=== PATIENT | female | born 1970 | race Caucasian/White ===

== ENCOUNTER 2021-10-31 19:51 | Emergency (ER) | payer OTHER, SELFPAY ==
[2021-10-31 20:07] VITALS: BP 187/105; PULSE 87; RESP 16; TEMP 36.4; O2SAT 97; BMI 42.3
--- NOTE | 2021-10-31 20:17 | W.ED.NAVMDI ---
HPI - Nausea/Vomiting/Diarrhea General: Chief complaint: Nausea/Vomiting/Diarrhea Stated complaint: Diarhea with\Blood\Rt Shoulder Blade Cramp Time Seen by Provider: 10/31/21 20:12 History of Present Illness: Ms. Cote is a 51-year-old lady with history of hypertension who presents to the emergency department due to nausea, vomiting, and diarrhea. Symptom onset was subacute approximately 6 days ago. She denies specific known provoking factors and has not had sick contacts. She started with multiple episodes of watery diarrhea mild abdominal cramping. Her symptoms have progressed and on 3 to 4 days ago she also started noticing cramping feeling deep inside behind her right shoulder blade. She denies anterior chest pain or shortness of breath. No cough associated with this. 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 Mild to moderate associated abdominal discomfort. Some nausea and vomiting. Does have decreased urine output. Overall the course of symptoms has been worsening. No other specific changes in health, exacerbating, relieving factors. The patient did not take her antihypertensives this morning due to vomiting. She has a history of hysterectomy remotely with complication requiring prolonged ICU stay. Pertinent past history: abdominal surgery Onset (ago): day(s) Description of vomiting: food contents Description of diarrhea: watery Associated nausea: Yes Associated abdominal pain: Yes Location of pain: Diffuse Pain consistency: intermittent Severity: moderate Quality: cramping Exacerbating factors: none Relieving factors: none Associated symtoms: Reports nausea Review of Systems General: Reports: 10 or more systems reviewed and unremarkable except in HPI and below GI: Reports: nausea PFSH ED PFSH: Medical History HTN (hypertension) Surgical History H/O: hysterectomy Social History Smoking and tobacco status: never smoked Physical Exam Const: COMMON NORMALS: alert GENERAL APPEARANCE: cooperative, well developed and ill appearing (mildly) HENMT: COMMON NORMALS: normocephalic and atraumatic HEAD & SCALP: normocephalic and atraumatic THROAT: posterior oropharynx normal Eye: COMMON NORMALS: conjunctivae normal CONJUNCTIVA: Yes conjunctivae normal SCLERA: sclerae normal Neck/C-Spine: COMMON NORMALS: supple GENERAL: Yes trachea midline Resp: COMMON NORMALS: normal respiratory effort and clear to auscultation bilaterally EFFORT & INSPECTION: Yes able to speak in complete sentences AUSCULTATION: clear to auscultation bilaterally Cardio: COMMON NORMALS: regular rate and regular rhythm RATE: regular rate RHYTHM: regular rhythm GI: COMMON NORMALS: Soft to palpation PALPATION: Yes Soft to palpation and No Tenderness to palpation present (GI) PERCUSSION: normal to percussion Extremity: GENERAL: Yes normal exam except as noted and No edema Neuro: COMMON NORMALS: moves all extremities SENSORIUM/ORIENTATION: Yes alert and No Orientation impaired Psych: COMMON NORMALS: mental status grossly normal and Normal thought process present THOUGHT PROCESS: Normal thought process present Course ED course: - Patient was seen and evaluated by me at bedside - Patient placed on cardiac monitors, IV access obtained - Initial evaluation notable for exam as above -Fluids, antiemetic ordered - Labs notable for leukocytosis, likely hemoconcentration. Metabolic panel with mild evidence of dehydration. Unclear etiology of mild transaminitis. Urinalysis without evidence of urinary tract infection. - Imaging notable for negative chest x-ray. No acute finding noted on CT abdomen and pelvis to explain the patient's symptoms. Based on physical exam including nonfocal findings I do not feel that any additional inpatient or emergency department evaluation of transaminitis is warranted. The patient's clinical history is inconsistent with biliary pathology. - Upon serial reexamination after treatment the patient was improved. She did require multiple doses of antihypertensive. Hypertension was discussed with the patient - Based on patient history, evaluation, labs, and imaging as interpreted the most likely cause of the patient's condition is nausea, vomiting, diarrhea of unclear etiology, transaminitis, hypertension - The results of ED evaluation were discussed with the patient including prescriptions and/or symptomatic cares (if applicable) including appropriate and responsible use, followup plan, and return precautions. The patient verbalized understanding and felt safe for discharge. - Patient discharged in satisfactory condition. Note: Click bubbles or prepopulated marquez in note writing are used for assistance with data collection and billing and are inherently more limited than narrative and other text portions of this note. Please use narrative for additional clinical history and defer to narrative/free test for any case of contradictory information. If information appears in only free text or click bubble it should be considered present or absent as reported. Please contact note technical report writer for clarifications of clinical information or contradictory information. MDM is a brief summary, contradictory or erroneous seeming information should be clarified and full note should be reviewed. Vital Signs: Vital signs: Vital Signs Temperature 97.5 F L 10/31/21 20:07 Pulse Rate 74 10/31/21 23:26 Respiratory Rate 18 10/31/21 23:26 Blood Pressure 201/101 10/31/21 23:26 Pulse Oximetry 99 10/31/21 23:26 MDM - Nausea/Vomiting/Diarrhea Medical Decision Making 51-year-old lady with history of abdominal surgeries presenting with nausea, vomiting, diarrhea. No specific cause found during evaluation in the emergency department. Patient felt improved after symptom treatment. Given blood in diarrhea we will give a short course of antibiotic. Satisfactory for outpatient management. Medical Records I reviewed the patient's medical records. Lab Data I reviewed the patient's lab results. : 10/31/21 20:47 10/31/21 20:47 Radiology Impressions Abdomen/Pelvis CT 10/31/21 20:49 IMPRESSION: No acute findings. Chest X-Ray 10/31/21 20:49 IMPRESSION: No acute findings. Laboratory Results WBC 14.2 10^3/uL (4.0-10.0) H 10/31/21 20:47 RBC 5.57 10^6/uL (4.1-5.3) H 10/31/21 20:47 Hgb 15.6 g/dL (11.5-15.3) H 10/31/21 20:47 Hct 48.0 % (37.0-47.0) H 10/31/21 20:47 MCV 86.2 fl (81-99) 10/31/21 20:47 MCH 28.0 pg (28.0-34.0) 10/31/21 20:47 MCHC 32.5 g/dL (30.0-36.0) 10/31/21 20:47 RDW 13.4 % (12.1-15.1) 10/31/21 20:47 Plt Count 348 10^3/cmm (130-400) 10/31/21 20:47 MPV 10.2 fL (7.4-10.4) 10/31/21 20:47 Neut % (Auto) 65.2 % 10/31/21 20:47 Lymph % (Auto) 24.9 % 10/31/21 20:47 [place] % (Auto) 7.6 % 10/31/21 20:47 Eos % (Auto) 1.3 % 10/31/21 20:47 Baso % (Auto) 0.6 % 10/31/21 20:47 Neut # (Auto) 9.30 10^3/uL (1.8-7.7) H 10/31/21 20:47 Lymph # (Auto) 3.5 10^3/uL (0.8-4.8) 10/31/21 20:47 [place] # (Auto) 1.1 10^3/uL (0.2-0.9) H 10/31/21 20:47 Eos # (Auto) 0.2 10^3/uL (0.0-0.8) 10/31/21 20:47 Baso # (Auto) 0.1 10^3/uL (0.0-0.1) 10/31/21 20:47 Nucleated RBC % (auto) 0 % 10/31/21 20:47 Nucleated RBCs # 0.0 /100WBC 10/31/21 20:47 Sodium 134 mmol/L (136-145) L 10/31/21 20:47 Potassium 3.9 mmol/L (3.5-5.1) 10/31/21 20:47 Chloride 100 mmol/L (98-107) 10/31/21 20:47 Carbon Dioxide 21 mmol/L (22-29) L 10/31/21 20:47 Anion Gap 16.9 (5-19) 10/31/21 20:47 BUN 13 mg/dL (6-20) 10/31/21 20:47 Creatinine 0.5 mg/dL (0.5-0.9) 10/31/21 20:47 GFR Calculation 130.1 mL/min (90-130) H 10/31/21 20:47 Glucose 92 mg/dL (65-115) 10/31/21 20:47 Calculated Osmolality 278 mOsm/kg (285-295) L 10/31/21 20:47 Calcium 10.2 mg/dL (8.5-10.5) 10/31/21 20:47 Total Bilirubin 0.5 mg/dL (0.15-1.2) 10/31/21 20:47 AST 34 U/L (0-32) H 10/31/21 20:47 ALT 60 U/L (0-33) H 10/31/21 20:47 Alkaline Phosphatase 125 IU/L (35-105) H 10/31/21 20:47 Troponin T Baseline 11 ng/L (0-10) H 10/31/21 20:47 Troponin T 120 Minute 6.90 ng/L (0-10) 10/31/21 22:41 Delta Troponin T -4.10 ABS# (0-10) L 10/31/21 22:41 Total Protein 7.2 g/dL (6.6-8.7) 10/31/21 20:47 Albumin 4.9 g/dL (3.5-5.2) 10/31/21 20:47 Globulin 2.3 g/dL (1.3-4.6) 10/31/21 20:47 Lipase 19 U/L (13-60) 10/31/21 20:47 Urine Color Yellow (Yellow) 10/31/21 20:47 Urine Appearance Sl hazy (CLEAR) 10/31/21 20:47 Urine pH 5 (5-7) 10/31/21 20:47 Ur Specific [place] 1.030 (1.005-1.030) 10/31/21 20:47 Urine Protein Neg (Negative) 10/31/21 20:47 Urine Glucose (UA) Norm (Normal) 10/31/21 20:47 Urine Ketones Negative (Negative) 10/31/21 20:47 Urine Blood Neg (Negative) 10/31/21 20:47 Urine Nitrate Negative (Negative) 10/31/21 20:47 Urine Bilirubin Neg (Negative) 10/31/21 20:47 Urine Urobilinogen Norm mg/dL (Negative) 10/31/21 20:47 Ur Leukocyte Esterase Negative (Negative) 10/31/21 20:47 Urine RBC 0-4 /hpf (0-2) H 10/31/21 20:47 Urine WBC 0-4 /hpf (0-5) H 10/31/21 20:47 Ur Squamous Epith Cells 25-40 /hpf (0-5) H 10/31/21 20:47 Amorphous Sediment Not Reportable 10/31/21 20:47 Urine Bacteria 1+ /hpf (NONE) H 10/31/21 20:47 Hepatitis A IgM Ab Non-reactive (Nonreactive) 10/31/21 20:47 Hep Bs Antigen Non-reactive (Nonreactive) 10/31/21 20:47 Hep B Core IgM Ab Non-reactive (Nonreactive) 10/31/21 20:47 Hepatitis C Antibody Non-reactive (Nonreactive) 10/31/21 20:47 SARS-CoV-2 RNA (RT-PCR) Not detected (NOT DETECTED) 10/31/21 22:31 EKG Data EKG 1: Interpretation: Twelve-lead EKG shows a sinus rhythm at a rate of 70. NH interval 149. QRS duration 88. QTc 426. Regular [place]. Interpretation: Sinus rhythm. Nonspecific ST segment abnormalities. Discharge Plan Discharge Patient Disposition: Home Clinical Impression: Nausea & vomiting, HTN (hypertension), Dehydration, Diarrhea, Shoulder pain, Leukocytosis, Transaminitis Condition: Stable Prescriptions: New azithromycin 500 mg tablet See Rx Instructions .ROUTE .COMPLEX Qty: 3 0RF Rx Instructions: take 500 mg once daily for 3 days Discharge Orders: Discharge ED (Routine); Ordered 10/31/21 Ordered By: Oleksandr Osborn Discharge Diet: Clear Liquid Discharge Activity: Resume usual activity Patient Instructions: Dehydration (ED), Acute Nausea and Vomiting (ED), Acute Diarrhea (ED) Activity Restrictions/Additional Instructions: Thank you for visiting the emergency department. You were seen and evaluated for nausea, vomiting, and diarrhea with blood in stool. The exact cause of your symptoms is unclear. Given the duration and blood in stool I will treat this. You will be given a prescription for antibiotics and for antinausea medication. As discussed your blood pressure is elevated, please follow-up with your primary care provider regarding this. Additionally you have mild elevation in your transaminases (AST/ALT), please have labs rechecked in 1 to 2 weeks and follow-up with your primary care provider as they may recommend additional imaging with ultrasound. Return to the emergency department for uncontrolled pain, vomiting blood or more blood in stool despite treatment, inability to tolerate oral intake, or anything else that you are concerned about a feel needs emergency department evaluation. Coding Level of Care Code ED Magazine Publisher for Graceg Fwd Exam Comprehensive
--- NOTE | 2021-10-31 20:49 | CTR_ITS ---
PROCEDURE INFORMATION: Exam: CT Abdomen And Pelvis With Contrast Exam date and time: 10/31/2021 8:49 PM Age: 51 years old Clinical indication: Bloating and nausea and vomiting; Prior surgery; Surgery type: Hysterectomy; Patient HX: C/O adb cramping with n/v/d. ; Additional info: N/v/d, cramping TECHNIQUE: Imaging protocol: Computed tomography of the abdomen and pelvis with contrast. Radiation optimization: All CT scans at this facility use at least one of these dose optimization techniques: automated exposure control; mA and/or kV adjustment per patient size (includes targeted exams where dose is matched to clinical indication); or iterative reconstruction. Contrast material: OMNI 300; Contrast volume: 95 ml; Contrast route: INTRAVENOUS (IV); COMPARISON: No relevant prior studies available. RADIATION DOSE METRICS: Total DLP (mGy-cm): 1963.69 FINDINGS: Liver: Normal. No mass. Gallbladder and bile ducts: Normal. No calcified stones. No ductal dilation. Pancreas: Normal. No ductal dilation. Spleen: Normal. No splenomegaly. Adrenal glands: Normal. No mass. Kidneys and ureters: Normal. No hydronephrosis. Stomach and bowel: Colonic and duodenal diverticuli noted. No evident pericolic inflammatory change. No findings of abnormal bowel distention. Appendix: No evidence of appendicitis. Intraperitoneal space: Unremarkable. No free air. No significant fluid collection. Vasculature: Unremarkable. No abdominal aortic aneurysm. Lymph nodes: Unremarkable. No enlarged lymph nodes. Urinary bladder: Unremarkable as visualized. Reproductive: Hysterectomy. Bones/joints: No acute fracture. Soft tissues: Unremarkable. CT/CT abdomen pelvis w con* [id number] IMPRESSION: No acute findings.
--- NOTE | 2021-10-31 20:49 | XRR_ITS ---
PROCEDURE INFORMATION: Exam: XR Chest Exam date and time: 10/31/2021 8:49 PM Age: 51 years old Clinical indication: Chest wall pain; Additional info: Shoulder/chest pain TECHNIQUE: Imaging protocol: XR of the chest. Views: 1 view. COMPARISON: CT abdomen pelvis w con* [id number] 10/31/2021 9:09 PM FINDINGS: Lungs: Unremarkable. No consolidation. Pleural spaces: Unremarkable. No pleural effusion. No pneumothorax. Heart/Mediastinum: Unremarkable. No cardiomegaly. Bones/joints: No acute findings. XR/XR chest 1V portable [id number] IMPRESSION: No acute findings.
[2021-10-31 21:01] LABS: Basophils # 0.1 10^3/uL (0.0-0.1); Basophils % 0.6 %; Eosinophils # 0.2 10^3/uL (0.0-0.8); Eosinophils % 1.3 %; Hemoglobin 15.6 g/dL (11.5-15.3); Lymphocytes # 3.5 10^3/uL (0.8-4.8); Lymphocytes % 24.9 %; Mean Corpuscular HGB Conc 32.5 g/dL (30.0-36.0); Mean Corpuscular Volume 86.2 fl (81-99); Mean Platelet Volume 10.2 fL (7.4-10.4); Monocytes # 1.1 10^3/uL (0.2-0.9); Monocytes % 7.6 %; Neutrophils % 65.2 %; Nucleated Red Blood Cells % 0 %; Platelet Count 348 10^3/cmm (130-400); Red Blood Count 5.57 10^6/uL (4.1-5.3); Red Cell Distribution Width 13.4 % (12.1-15.1); White Blood Count 14.2 10^3/uL (4.0-10.0)
[2021-10-31] MEDS: iohexol 300 mg/mL 100 mL Btl IV (21:09)
[2021-10-31 21:19] LABS: Add Urine Culture? No; Add Urine Microscopic? YES; Bacteria Urine 1+ /hpf; Bilirubin Urine Neg (Negative); Blood Urine Neg (Negative); Glucose Urine UA Norm (Normal); Ketones Urine Negative (Negative); Leukocyte Esterase Urine Negative (Negative); Nitrate Urine Negative (Negative); Protein Urine Neg (Negative); RBC Urine 0-4 /hpf (0-2); Squamous Epithelial Cell Urine 25-40 /hpf (0-5); Urine Appearance SL Hazy (CLEAR); Urine Color Yellow (Yellow); Urobilinogen Urine Norm (Negative); WBC Urine 0-4 /hpf (0-5); pH Urine 5 (5-7)
[2021-10-31 21:23] LABS: Alanine Aminotransferase 60 U/L (0-33); Albumin Level 4.9 g/dL (3.5-5.2); Alkaline Phosphatase 125 IU/L (35-105); Anion Gap 16.9 (5-19); Aspartate Amino Transferase 34 U/L (0-32); Blood Urea Nitrogen 13 mg/dL (6-20); Calcium 10.2 mg/dL (8.5-10.5); Carbon Dioxide 21 mmol/L (22-29); Chloride 100 mmol/L (98-107); Globulin 2.3 g/dL (1.3-4.6); Glomerular Filtration Rate 130.1 mL/min (90-130); Glucose 92 mg/dL (65-115); Lipase 19 U/L (13-60); Osmolality Calculated 278 mOsm/kg (285-295); Potassium 3.9 mmol/L (3.5-5.1); Sodium 134 mmol/L (136-145); Total Bilirubin 0.5 mg/dL (0.15-1.2); Total Protein 7.2 g/dL (6.6-8.7)
[2021-10-31 21:24] LABS: Troponin(5th) Baseline 11 ng/L (0-10)
[2021-10-31] MEDS: ondansetron 2 mg/ML SDV 2 mL 4 MG IVP (21:25)
[2021-10-31] MEDS: sodium chloride 0.9% 1,000 ML 999 ML IV (21:25)
[2021-10-31 21:47] VITALS: BP 182/102
[2021-10-31] MEDS: cloNIDine 0.1 mg Tablet PO ×2 (21:47→23:02)
[2021-10-31 21:48] VITALS: BP 182/102; PULSE 76; RESP 20; O2SAT 100
[2021-10-31 22:27] VITALS: BP 185/93; PULSE 74; RESP 18; O2SAT 100
--- NOTE | 2021-10-31 22:49 | ECG_ITS ---
[facility] Test Date: 2021-10-31 Pat Name: Ruby Cote Department: Room: Gender: Female [place]oughen[place]: : 1970 Requested By: Oleksandr Osborn Order Number: [id number] Joshua MD: Hong Walker M.D. Measurements Intervals [place] Rate: 74 P: 36 HI: 149 QRS: 59 QRSD: 88 T: 29 QT: 398 QTc: 444 Interpretive Statements SINUS RHYTHM No previous ECG available for comparison Electronically Signed On 11-01-2021 17:42:36 LYFT DRIVER by Hong Walker M.D. [email or web address]
[2021-10-31 22:57] LABS: Hepatitis A Antibody IgM Non-Reactive (Nonreactive); Hepatitis B Core IgM Non-Reactive (Nonreactive); Hepatitis B Surface Antigen Non-Reactive (Nonreactive); Hepatitis C Virus Antibody Non-Reactive (Nonreactive)
[2021-10-31 23:02] VITALS: BP 185/93
[2021-10-31 23:26] VITALS: BP 201/101; PULSE 74; RESP 18; O2SAT 99
[2021-11-02 11:06] LABS: Quest SARS-CoV-2 RNA NOT DETECTED (NOT DETECTED)
--- NOTE | 2021-11-02 17:17 | PC.NURSE ---
Left voice mail
== END 2021-10-31 23:27 | disposition home or self-care (01) ==
PROVIDERS: Emergency Provider Emergency Medicine
DX: R11.2 Nausea with vomiting, unspecified (principal); R19.7 Diarrhea, unspecified; I10 Essential (primary) hypertension; E86.0 Dehydration; D72.829 Elevated white blood cell count, unspecified; R74.01 Elevation of levels of liver transaminase levels; M25.511 Pain in right shoulder; Z20.822 Contact with and (suspected) exposure to COVID-19
CPT/HCPCS: 36415; 71045; 74177; 80053; 80074; 81001; 83690; 84484; 85025; 87635; 93005; 96361; 96374; 99284; J2405; J7030; Q9967

== ENCOUNTER 2021-12-01 08:34 | Emergency (ER) | payer OTHER, SELFPAY ==
--- NOTE | 2021-12-01 08:38 | XRR_ITS ---
PROCEDURE INFORMATION: Exam: XR Right Foot Exam date and time: 12/01/2021 8:38 AM Age: 51 years old Clinical indication: Pain; Additional info: Injury TECHNIQUE: Imaging protocol: XR Right foot. Views: Frontal, lateral, and oblique, 3 views. COMPARISON: No relevant prior studies available. FINDINGS: Bones/joints: No acute bony abnormality identified. Mild dorsal articular marginal hypertrophy of the midfoot-forefoot junction. A small plantar calcaneal ossified spur is present. Fifth DIP joint fusion, normal variant. Soft tissues: Normal. XR/XR foot RT min 3V* [id number] IMPRESSION: 1. No acute bony injury identified. 2. Primary osteoarthritis. 3. Plantar calcaneal spur.
[2021-12-01 09:02] VITALS: BP 176/104; PULSE 85; RESP 18; TEMP 36.8; O2SAT 96; BMI 43.5
--- NOTE | 2021-12-01 09:15 | ED_ITS ---
HPI - Extremity Problem General: Chief complaint: Extremity Injury, Lower Stated complaint: R foot injury Time Seen by Provider: 12/01/21 09:00 Source: patient Mode of arrival: ambulatory Limitations: no limitations History of Present Illness: 51-year-old female presents to the ER today for right foot numbness and pain times several days. Patient reports about 25 years ago she injured this foot but denies having had any issues with it since. Patient reports this numbness on the dorsum of her right foot in addition to that she has numbness from the right big toe up into the mid calf. Patient also describes a heaviness in the foot. She reports pain to palpation and with ambulation just inferior to the right lateral malleolus. Patient denies any known injury in the last several days other than she reports she is on her feet frequently. She has not done anything for the pain at this time other than [id number] ibuprofen or Tylenol. Patient reports minimal swelling. Review of Systems General: Reports: 10 or more systems reviewed and unremarkable except in HPI and below PFSH ED PFSH: Medical History HTN (hypertension) Surgical History H/O: hysterectomy Social History Smoking and tobacco status: never smoked Physical Exam Const: COMMON NORMALS: no acute distress, average body habitus, patient oriented x3, no limitations, healthy appearing, alert and well nourished Resp: COMMON NORMALS: normal respiratory effort and clear to auscultation bilaterally EFFORT & INSPECTION: Yes able to speak in complete sentences AUSCULTATION: clear to auscultation bilaterally Cardio: COMMON NORMALS: regular rate and regular rhythm RATE: regular rate RHYTHM: regular rhythm Extremity: RIGHT LOWER EXTREMITY: Yes foot & digits (Patient has some mild swelling of the right lateral malleolus) OTHER: Patient has tenderness to palpation over the proximal fourth and fifth metatarsals. There is mild swelling over this area also. No bruising noted. Neuro: COMMON NORMALS: patient oriented x3 SENSORIUM/ORIENTATION: Yes alert Psych: COMMON NORMALS: mental status grossly normal, Normal thought process present and cooperative THOUGHT PROCESS: Normal thought process present Skin: COMMON NORMALS: no rashes or lesions noted GENERAL SKIN EXAM: no rashes or lesions noted Course ED course: Patient presents to the ER for right foot pain. This has been going on several days now. There is no known injury other than a chronic injury 25 years ago. We will get x-ray at this time given swelling and increased pain. Vital Signs: Vital signs: Vital Signs Temperature 98.2 F 12/01/21 09:02 Pulse Rate 85 12/01/21 09:02 Respiratory Rate 18 12/01/21 09:02 Blood Pressure 176/104 12/01/21 09:02 Pulse Oximetry 96 12/01/21 09:02 MDM - Extremity (Nontraumatic) Medical Decision Making 51-year-old female presents to the ER today for right foot pain for several days. Patient reports she injured this ankle and foot about 25 years ago but has not had problems since. Patient reports she got out and works in the yard this weekend and has noted increased pain and numbness over the lateral aspect of the dorsal part of the right foot. Patient reports some swelling. She has tried icy hot and anti-inflammatories with minimal improvement. X-ray performed in the ER does not indicate any acute injury however there is noted to be some arthritis which is likely the cause of patient's pain and numbness. Recommend rest, ice, elevation. Take ibuprofen or Aleve x1 week for inflammation. Follow-up with PCP in 14 to 21 days if no improvement. Return to the ER with new or worsening symptoms. Patient verbalized understanding and is in agreement with the treatment plan. Lab Data Radiology Impressions Foot X-Ray 12/01/21 08:38 IMPRESSION: 1. No acute bony injury identified. 2. Primary osteoarthritis. 3. Plantar calcaneal spur. Critical Care Time Critical Care Time: Critical Care Time: No Discharge Plan Discharge Patient Disposition: Home Clinical Impression: Acute pain of right foot Condition: Stable Prescriptions: No Action azithromycin 500 mg tablet See Rx Instructions .ROUTE .COMPLEX Qty: 3 0RF Rx Instructions: take 500 mg once daily for 3 days Discharge Orders: Discharge ED (Routine); Ordered 12/01/21 Ordered By: Veronica Dorsey Discharge Diet: Usual diet Discharge Activity: Increase activity as tolerated Patient Instructions: Opioid Safety Activity Restrictions/Additional Instructions: Take Aleve or naproxen as discussed. Rest, ice, and elevation recommended. Follow-up with primary care in 14 to 21 days if no improvement. Return to the ER with new or worsening symptoms. Coding Level of Care Code ED Refrigerator Glazier for Chg Fwd Exam Detailed
== END 2021-12-01 10:09 | disposition home or self-care (01) ==
PROVIDERS: Emergency Provider Physician Assistant
DX: M79.671 Pain in right foot (principal); I10 Essential (primary) hypertension
CPT/HCPCS: 73630; 99282

== ENCOUNTER 2022-02-12 15:11 | Outpatient (CLI) | payer OTHER, SELFPAY ==
--- NOTE | 2022-02-12 15:39 | CT_ITS ---
WS: [id number] CT NECK TECHNIQUE: Noncontrast CT of the neck with coronal and sagittal reformatted images. CLINICAL INFORMATION: NECK NODULE, HYPOTHYROIDISM COMPARISON: None. DLP: 318.[address] scans at [facility] use at least one of these dose optimization techniques: automated e xposure control; mA and/or kV adjustment per patient size (includes targeted exams where dose is matc hed to clinical indication); or iterative reconstruction. FINDINGS: Palpable marker overlying the LEFT lower neck. Lung apices are well aerated. Tiny calcified granuloma RIGHT upper lobe. Mastoid air cells well aerated. Paranasal sinuses are well aerated. Normal submand ibular glands. Normal parotid glands. Dental artifact degrades some images at the tongue base. Noncon trast tongue base appears normal. Normal parapharyngeal fat. Normal palatine tonsils. No evidence of supraglottic or glottic mass. Normal vallecula and piriform sinuses. Normal subglottic airway. Palpable marker overlying the LEFT neck at the level of the sternocleidomastoid. No underlying abnorm alities. Normal underlying platysma and subcutaneous soft tissues. Slightly prominent lymph node post erior to the submandibular gland anterior to the sternocleidomastoid on the LEFT measuring 10 mm in s hort axis dimension. This measures [address]/CT neck wo con [id number] IMPRESSION: 1. Palpable marker in the LEFT lower neck at the level of the sternocleidomast oid. No underlying subcutaneous mass or lesion in this location. 2. Slightly prominent LEFT level 2 cervical lymph node measuring 10 mm in shor t axis dimension and 16 mm in craniocaudal dimension. This may be reactive but indeterminant. This can be followed up with contrast-enhanced CT neck in 3 daly hs. Otherwise no cervical lymphadenopathy. 3. Normal salivary glands. 4. No evidence of supraglottic or glottic mass on this noncontrast CT. 5. Paranasal sinuses and mastoid air cells well aerated. 6. No other significant findings.
== END 2022-02-12 15:12 | disposition home or self-care (01) ==
PROVIDERS: PCP Nurse Practitioner Family; Visit Provider Nurse Practitioner Family
DX: E03.9 Hypothyroidism, unspecified (principal); R22.1 Localized swelling, mass and lump, neck; R60.9 Edema, unspecified; F41.9 Anxiety disorder, unspecified
CPT/HCPCS: 70490

== ENCOUNTER 2022-06-17 16:34 | Outpatient (CLI) | payer OTHER, SELFPAY ==
--- NOTE | 2022-06-17 17:03 | CT_ITS ---
WS: [id number] CT NECK NONCONTRAST. HISTORY: HYPOTHYROIDISM, NECK NODULE TECHNIQUE: Contiguous 5 mm axial images are performed through the neck without intravenous contrast. Sagittal and coronal reformats are also submitted. All CT scans at [facility] use at least on e of these dose optimization techniques: automated exposure control; mA and/or kV adjustment per shiv ent size (includes targeted exams where dose is matched to clinical indication); or iterative reconst ruction. CONTRAST: CONTRAST: None DLP: 300.94 mGy.cm COMPARISON: 02/12/2022 Very minimally prominent on the LEFT cervical chain level 2A. The largest lymph node measures 10 mm i n short axis diameter. There is no necrosis or enlargement since the prior study. There are several b ut not enlarged lymph nodes along the LEFT cervical chain. Smaller lymph nodes along the RIGHT cervic al chain. No increase in size since the prior study. On the unenhanced study subtle oropharyngeal lesions would be difficult to visualize. There is no asy mmetry of the soft tissues. No obstruction or narrowing of the airway. Glottis, supraglottic and subg lottic region appears normal. Tongue base is negative. Thyroid gland is very difficult to visualize and may be atrophied. Submandibular glands and parotid g lands negative. No osseous abnormalities. Visualized portions of the skull base demonstrate no abnormalities. Orbits and globes are within norm al limits. No soft tissue masses. Visualized paranasal sinuses and mastoid air cells are normal. Lung apices are clear. CT/CT neck wo con [id number] IMPRESSION: 1. LEFT neck lymph node is no longer palpable. 2. No significant decrease in size of the LEFT level 2A lymph node since 2021. Also no enlargement. This is not a necrotic lymph node. Favor this is a n ormal lymph node with no interval change. 3. Additional small benign bilateral cervical chain lymph nodes. 4. No glottic, subglottic or supraglottic abnormality on this unenhanced study .
== END 2022-06-17 16:35 | disposition home or self-care (01) ==
PROVIDERS: PCP Nurse Practitioner Family; Visit Provider Family Medicine
DX: E03.9 Hypothyroidism, unspecified (principal); F41.9 Anxiety disorder, unspecified; R60.9 Edema, unspecified
CPT/HCPCS: 70490

== ENCOUNTER 2022-07-15 15:18 | Emergency (ER) | payer OTHER, SELFPAY ==
[2022-07-15 15:30] VITALS: BP 169/108; PULSE 93; RESP 18; TEMP 36.4; O2SAT 96; BMI 44.6
--- NOTE | 2022-07-15 16:31 | W.ED.ALLEREA ---
HPI - Allergic Reaction General: Chief complaint: Allergic Reaction Stated complaint: rash Time Seen by Provider: 07/15/22 16:26 History of Present Illness: HPI narrative: Patient is a 52-year-old female comes to the ED with a rash. Patient says rash started approximately 1 to 2 hours ago. She has been very anxious today and had to take a dose of her Ativan this morning. Her and her were coming here to [place] do some shopping and she started developing a rash that she described as a burning type rash on her abdomen and arms. Denies any trouble breathing, throat swelling, lip or tongue swelling, nausea/vomiting or diarrhea. Patient did say she been under a lot of stress recently due to other health concerns. Denies any change in lotions, soaps, detergents or perfumes. Denies any history of food or other allergies. Associated symptoms: Deny abdominal pain, nausea or vomiting Review of Systems Const: Denies: fever(s), chills or fatigue Eyes: Denies: change in vision or eye discomfort ENMT: Denies: throat pain, odynophagia, nasal discharge or nasal congestion Card: Denies: chest pain, palpitations, edema, swelling of feet/ankles, dyspnea on exertion or orthopnea Resp: Denies: dyspnea, productive cough or non-productive cough GI: Denies: abdominal pain, nausea, vomiting, diarrhea, constipation or hematochezia : Denies: flank pain, dysuria or hematuria Musc: Denies: neck pain, back pain or extremity swelling Skin/Breast: Reports: rash; Denies: new lesions Neuro: Denies: headache(s), numbness in extremities or weakness in extremities [facility] ED PFSH: Medical History HTN (hypertension) Surgical History H/O: hysterectomy Social History Smoking and tobacco status: never smoked Physical Exam Const: COMMON NORMALS: no acute distress, patient oriented x3 and alert GENERAL APPEARANCE: cooperative and comfortable HENMT: COMMON NORMALS: normocephalic HEAD & SCALP: normocephalic MOUTH: Normal oral and palatal mucosa present THROAT: posterior oropharynx normal and uvula midline Neck/C-Spine: COMMON NORMALS: supple GENERAL: Yes normal visual inspection Resp: COMMON NORMALS: normal respiratory effort, No retractions, No use of accessory muscles and clear to auscultation bilaterally AUSCULTATION: clear to auscultation bilaterally Cardio: COMMON NORMALS: regular rate, regular rhythm, S1 normal heart sound present, S2 normal heart sound present, No gallops present (Cardio), No clicks present (Cardio), No murmurs present (Cardio) and Peripheral pulses 2+ throughout RATE: regular rate RHYTHM: regular rhythm HEART SOUNDS: S1 normal heart sound present and S2 normal heart sound present PERIPHERAL PULSES: Peripheral pulses 2+ throughout GI: COMMON NORMALS: Normal to inspection, nondistended, normoactive bowel sounds present, Soft to palpation, non-tender and no masses PALPATION: Yes Soft to palpation : COMMON NORMALS: Yes no CVA tenderness BLADDER/KIDNEY EXAM: Yes no CVA tenderness Back/Pelvis: COMMON NORMALS: no CVA tenderness Extremity: COMMON NORMALS: normal to inspection Neuro: COMMON NORMALS: patient oriented x3 SENSORIUM/ORIENTATION: Yes alert GAIT: Yes Normal gait present Skin: NARRATIVE SKIN EXAM: Patient has urticarial type rash on bilateral arms, chest and abdomen. GENERAL SKIN EXAM: dry skin Course Vital Signs: Vital signs: Vital Signs Temperature 97.6 F 07/15/22 15:30 Pulse Rate 93 07/15/22 15:30 Respiratory Rate 18 07/15/22 15:30 Blood Pressure 169/108 07/15/22 15:30 Pulse Oximetry 96 07/15/22 15:30 Oxygen Delivery Me thod 07/15/22 15:30 MDM - Allergic Reaction Medical Decision Making Patient is a 52-year-old female comes to the ED with a rash. Patient says rash started approximately 1 to 2 hours ago. She has been very anxious today and had to take a dose of her Ativan this morning. Her and her were coming here to [place] do some shopping and she started developing a rash that she described as a burning type rash on her abdomen and arms. Denies any trouble breathing, throat swelling, lip or tongue swelling, nausea/vomiting or diarrhea. She is under a lot of stress currently denies any history of allergic reactions. Denies any changes in skin care/cleaning products. Vitals are stable. Patient appears to have an urticarial type rash on her abdomen and arms bilaterally. No lip or tongue swelling noted. Rest of exam is benign. Patient was given a dose of Solu-Medrol and Benadryl here in the ED. Her rash improved and she was stable for discharge home. She was diagnosed with urticaria and discharged home with this prescription for a couple days of prednisone. Told to follow-up with PCP within the next week for reevaluation. Return to ED precautions given. Patient understood and agreed with plan. Discharge Plan Discharge Patient Disposition: Home Clinical Impression: Urticaria Condition: Stable Prescriptions: New prednisone 20 mg tablet 20 mg PO BID 3 Days Qty: 6 0RF No Action azithromycin 500 mg tablet See Rx Instructions .ROUTE .COMPLEX Qty: 3 0RF Rx Instructions: take 500 mg once daily for 3 days Discharge Orders: Discharge ED (Routine); Ordered 07/15/22 Ordered By: Guicho Franks Referrals: Lori Johnson FNP [Primary Care Provider] - Discharge Diet: Regular Discharge Activity: Increase activity as tolerated Patient Instructions: Urticaria (ED) Activity Restrictions/Additional Instructions: Follow-up with medical provider as directed. Take medications as prescribed. Return to the ER or your medical provider if condition worsens. Please read and understand discharge instructions. Thank you for choosing [facility] for your healthcare needs today. Please realize this is an emergency room and that we are providing you with a medical screening exam and this may not be complete and all inclusive of all the testing and or work up that you may need to determine your ailment or severity of your illness. It is very important that you follow up as instructed or that you return to the Emergency Department should you have concerns or if your condition changes or worsens in any way. Coding Level of Care Code ED Confidential Investigator for Varun Hood Exam Comprehensive
[2022-07-15] MEDS: diphenhydrAMINE 50 mg Capsule PO (17:12)
== END 2022-07-15 17:43 | disposition home or self-care (01) ==
PROVIDERS: Emergency Provider Physician Assistant; PCP Nurse Practitioner Family
DX: L50.9 Urticaria, unspecified (principal); I10 Essential (primary) hypertension
CPT/HCPCS: 96372; 99284; J2930; Q0163

== ENCOUNTER 2022-07-28 08:03 | Day surgery (SDC) | payer OTHER, SELFPAY ==
[2022-07-25 07:42] VITALS: BMI 44.4
--- NOTE | 2022-07-28 07:58 | W.PM.OPSFHP ---
Same Day Surgery H&P Indication for Procedure/HPI DATE OF PROCEDURE: July 28, 2022 CHIEF COMPLAINT/INDICATIONFOR SURGICAL PROCEDURE: Dysphagia and family history of colon cancer PREOP DIAGNOSIS: Dysphagia family history dysphagia and a family history of colon cancer PLANNED PROCEDURE: Operation Date: 07/28/22 09:30 Proposed Procedures p EGD Dilation W/ Bougie 29786/Colonoscopy 76732,Z80.0(Not Applicable) - Jose Loyd MD s Colonoscopy(Not Applicable) - Jose Loyd MD Medications/Allergies* Home Medications Medication Instructions Recorded Confirmed Type levothyroxine 175 mcg tablet 175 mcg PO DAILY 07/23/22 07/25/22 History losartan 50 mg-hydrochlorothiazide 1 tab PO DAILY 07/23/22 07/25/22 History 12.5 mg tablet tirzepatide 2.5 mg/0.5 mL 2.5 mg SUBCUT DIRECTED 07/23/22 07/25/22 History subcutaneous pen injector (Mounjaro) omeprazole 20 mg tablet,delayed 20 mg PO DAILY PRN Heartburn 07/25/22 07/25/22 History release Allergies/Adverse Reactions Allergy/AdvReac Type Severity Reaction Status Date / Time No Known Allergies Allergy Verified 07/25/22 07:30 Pertinent History/Comorbid Conditions* Medical History (Updated 07/23/22 @ 11:16 by Jose Loyd MD) HTN (hypertension) Surgical History (Updated 10/31/21 @ 20:38 by Oleksandr Osborn MD) H/O: hysterectomy Social History Smoking and tobacco status: never smoked Pertinent Exam Findings alert, oriented x 3, clear to auscultation bilaterally, regular rate & rhythm, operative site marked and procedure specific exam findings Recommendations Surgery/Procedure today Coding Level of Care Code Acute Transportation Engineer for Varun Hood
[2022-07-28 08:20] VITALS: BP 162/133; PULSE 101; RESP 18; TEMP 36.1; O2SAT 97
[2022-07-28] MEDS: sodium chloride 0.9% 1,000 ML 30 ML IV (08:33)
--- NOTE | 2022-07-28 08:36 | ANES.PREANE2 ---
Pre-Anesthetic Assessment Height/Weight: Height 1.7 m Weight 128.82 kg Temp Pulse Resp BP Pulse Ox O2 Del Method 97 F L 101 H 18 162/133 97 07/28/22 08:20 07/28/22 08:20 07/28/22 08:20 07/28/22 08:20 07/28/22 08:20 07/28/22 08:20 Preop Diagnosis: FH and dysphagia Operation Date: 07/28/22 09:30 Proposed Procedures p EGD Dilation W/ Bougie 23835/Colonoscopy 11586,Z80.0(Not Applicable) - Jose Loyd MD s Colonoscopy(Not Applicable) - Jose Loyd MD Familial anesthetic complications: none Was Beta Noa taken within 24 hours: N/A Was Clonidine taken within 24 hours: N/A Last intake: Intake Last Liquid Date 07/27/22 Last Liquid Time 22:00 Last Solid Date 07/26/22 Last Solid Time 18:00 Social No alcohol and No tobacco Exam alert, oriented x 3, clear to auscultation bilaterally and regular rate & rhythm Airway Mallampati: Class III Dentition: other (missing, crowns) Pulmonary None reported CV/HEM Hypertension Hepatic elevated LFTs GI Gastroesophageal Reflux Disease Metabolic Morbid Obesity and Thyroid Disease Anesthetic Plan ASA status: 2 Anesthesia: MAC Risk of > 500 ml blood loss (7ml/kg in children): No Medications/Allergies Home Medications Medication Instructions Recorded Confirmed Last Taken Type levothyroxine 175 mcg tablet 175 mcg PO DAILY 07/23/22 07/25/22 07/27/22 History losartan 50 mg-hydrochlorothiazide 1 tab PO DAILY 07/23/22 07/25/22 07/27/22 History 12.5 mg tablet tirzepatide 2.5 mg/0.5 mL 2.5 mg SUBCUT DIRECTED 07/23/22 07/25/22 07/18/22 History subcutaneous pen injector (Mounmaytero) omeprazole 20 mg tablet,delayed 20 mg PO DAILY PRN Heartburn 07/25/22 07/25/22 07/27/22 History release Allergies Allergy/AdvReac Type Severity Reaction Status Date / Time lisinopril Allergy ADR-Cough Verified 07/28/22 08:18 Current Medications Generic Name Dose Route Start Last Admin Trade Name Freq PRN Reason Stop Dose Admin Sodium Chloride 1,000 mls @ 30 mls/hr 07/28/22 08:15 07/28/22 08:33 Sodium Chloride 0.9% IV 07/29/22 08:14 30 mls/hr .Q24H NING Administration PFSH Anesthesia Medical History HTN (hypertension) Surgical History H/O: hysterectomy Social History Smoking and tobacco status: never smoked Data Anesthesia Cardiac Studies: No Data to Display
[2022-07-28 10:15] VITALS: BP 127/82; PULSE 91; RESP 16; TEMP 36.2; O2SAT 93
[2022-07-28 10:25] VITALS: BP 130/72; PULSE 88; RESP 16; O2SAT 96
[2022-07-28 10:40] VITALS: BP 113/90; PULSE 75; RESP 16; O2SAT 96
--- NOTE | 2022-07-28 13:45 | ANE.PACU2 ---
Inpatient post-anesthesia follow up: Airway intact: Yes Vital signs: Temperature 97.2 F Pulse Rate 75 Respiratory Rate 16 Blood Pressure 113/90 Pulse Oximetry 96 Oxygen Delivery Me thod Room Air Oxygen Flow Rate 3 Fraction of Inspir ed Oxygen Hydration adequate: Yes Nausea and vomiting: No Pain level: 1 Mental status: Baseline
[2022-07-29 10:58] LABS: H. Pylori / CLO Test Negative
== END 2022-07-28 10:51 | disposition home or self-care (01) ==
PROVIDERS: PCP Nurse Practitioner Family; Visit Provider Internal Medicine
PROC: 0DJD8ZZ Inspection of Lower Intestinal Tract, Via Natural or Artificial Opening Endoscopic (ICD-10-PCS; CPT 45378; 2022-07-28 09:30)
DX: Z12.11 Encounter for screening for malignant neoplasm of colon (principal); Z80.0 Family history of malignant neoplasm of digestive organs; R13.10 Dysphagia, unspecified; K29.70 Gastritis, unspecified, without bleeding; I10 Essential (primary) hypertension; K21.9 Gastro-esophageal reflux disease without esophagitis; E66.01 Morbid (severe) obesity due to excess calories; Z68.41 Body mass index [BMI] 40.0-44.9, adult
CPT/HCPCS: 43239; 45378; 87077; J2704; J7030

== ENCOUNTER 2022-09-20 19:04 | Emergency (ER) | payer OTHER, SELFPAY ==
[2022-09-20 19:16] VITALS: PULSE 125; RESP 18; TEMP 36.4; O2SAT 96
[2022-09-20 19:21] VITALS: BP 138/92
--- NOTE | 2022-09-20 19:28 | ED_ITS ---
HPI - General Adult General: Chief complaint: General Medical Stated complaint: n/v, flu like symptoms Time Seen by Provider: 09/20/22 19:28 History of Present Illness: Ms. Cote is a 52-year-old lady with history of hypertension, thyroid disorder, diabetes presenting to the emergency department due to generalized illness. Onset of symptoms was yesterday with fatigue however symptoms evolved today. She endorses headache, generalized body aches, fevers, cough, nausea and vomiting. Intensity symptoms is moderate to severe. Course has worsened. No other specific changes in health, exacerbating, or alleviating factors identified. Onset (ago): day(s) Severity: moderate Associated symptoms: Reports headache(s), malaise, vomiting, weakness and other Review of Systems General: Reports: 10 or more systems reviewed and unremarkable except in HPI and below Const: Reports: malaise GI: Reports: vomiting Neuro: Reports: headache(s) PFS ED PFSH: Medical History HTN (hypertension) Surgical History H/O: hysterectomy Social History Smoking and tobacco status: never smoked Physical Exam Const: COMMON NORMALS: alert GENERAL APPEARANCE: cooperative, well developed and ill appearing HENMT: COMMON NORMALS: normocephalic and atraumatic HEAD & SCALP: no rmocephalic and atraumatic THROAT: posterior oropharynx normal Eye: COMMON NORMALS: conjunctivae normal CONJUNCTIVA: Yes conjunctivae normal SCLERA: sclerae normal Neck/C-Spine: COMMON NORMALS: supple GENERAL: Yes trachea midline Resp: COMMON NORMALS: clear to auscultation bilaterally EFFORT & INSPECTION: Yes able to speak in complete sentences AUSCULTATION: clear to auscultation bilaterally Cardio: COMMON NORMALS: regular rate and regular rhythm RATE: regular rate and tachycardic RHYTHM: regular rhythm GI: COMMON NORMALS: Soft to palpation PALPATION: Yes Soft to palpation, No Guarding due to palpation present (GI) and No Rigid due to palpation Extremity: GENERAL: Yes normal exam except as noted and No edema Neuro: COMMON NORMALS: moves all extremities SENSORIUM/ORIENTATION: Yes alert and No Orientation impaired Psych: COMMON NORMALS: mental status grossly normal and Normal thought process present THOUGHT PROCESS: Normal thought process present Course Vital Signs: Vital signs: Vital Signs Temperature 97.5 F L 09/20/22 19:16 Pulse Rate 98 09/20/22 20:45 Respiratory Rate 18 09/20/22 20:45 Blood Pressure 132/89 09/20/22 20:45 Pulse Oximetry 96 09/20/22 20:45 Oxygen Delivery Me thod 09/20/22 19:16 MDM - General Adult Medical Decision Making 52-year-old lady presenting with generalized illness. Mildly ill appearance however nontoxic. Patient is tachycardic. Labs with mild hemoconcentration had minimal leukocytosis. Mild dehydration on metabolic panel, transaminitis again present discussed with patient. Squamous epithelial contamination on urinalysis though no other evidence of urinary tract infection Chest x-ray with no lobar consolidation or pneumothorax. Patient improved with Toradol, Zofran, IV fluids for she is able to tolerate p.o. intake. Most likely cause patient symptoms is acute viral syndrome. The results of ED evaluation were discussed with the patient including prescriptions and/or symptomatic cares (if applicable) including appropriate and responsible use, followup plan, and return precautions. The patient verbalized understanding and felt safe for discharge. Medical Records I reviewed the patient's medical records. Lab Data I reviewed the patient's lab results. 09/20/22 20:00 09/20/22 20:00 Radiology Impressions Chest X-Ray 09/20/22 19:31 IMPRESSION: No obvious acute consolidation. Suboptimal lung base assessment. Followup including lateral view may be obtained if clinically indicated. Laboratory Results WBC 10.9 10^3/uL (4.0-10.0) H 09/20/22 20:00 RBC 5.65 10^6/uL (4.1-5.3) H 09/20/22 20:00 Hgb 16.0 g/dL (11.5-15.3) H 09/20/22 20:00 Hct 47.7 % (37.0-47.0) H 09/20/22 20:00 MCV 84.4 fl (81-99) 09/20/22 20:00 MCH 28.3 pg (28.0-34.0) 09/20/22 20:00 MCHC 33.5 g/dL (30.0-36.0) 09/20/22 20:00 RDW 12.5 % (12.1-15.1) 09/20/22 20:00 Plt Count 282 10^3/cmm (130-400) 09/20/22 20:00 MPV 11.2 fL (7.4-10.4) H 09/20/22 20:00 Neut % (Auto) 78.6 % 09/20/22 20:00 Lymph % (Auto) 12.0 % 09/20/22 20:00 [place] % (Auto) 8.3 % 09/20/22 20:00 Eos % (Auto) 0.5 % 09/20/22 20:00 Baso % (Auto) 0.4 % 09/20/22 20:00 Neut # (Auto) 8.54 10^3/uL (1.8-7.7) H 09/20/22 20:00 Lymph # (Auto) 1.3 10^3/uL (0.8-4.8) 09/20/22 20:00 [place] # (Auto) 0.9 10^3/uL (0.2-0.9) 09/20/22 20:00 Eos # (Auto) 0.1 10^3/uL (0.0-0.8) 09/20/22 20:00 Baso # (Auto) 0.0 10^3/uL (0.0-0.1) 09/20/22 20:00 Nucleated RBC % (auto) 0 % 09/20/22 20:00 Nucleated RBCs # 0.0 /100WBC 09/20/22 20:00 Sodium 135 mmol/L (136-145) L 09/20/22 20:00 Potassium 3.5 mmol/L (3.5-5.1) 09/20/22 20:00 Chloride 100 mmol/L (98-107) 09/20/22 20:00 Carbon Dioxide 24 mmol/L (22-29) 09/20/22 20:00 Anion Gap 14.5 (5-19) 09/20/22 20:00 BUN 13 mg/dL (6-20) 09/20/22 20:00 Creatinine 0.7 mg/dL (0.5-0.9) 09/20/22 20:00 GFR Calculation 87.9 mL/min (90-130) L 09/20/22 20:00 Glucose 100 mg/dL (65-115) 09/20/22 20:00 Calculated Osmolality 280 mOsm/kg (285-295) L 09/20/22 20:00 Calcium 10.1 mg/dL (8.5-10.5) 09/20/22 20:00 Total Bilirubin 0.8 mg/dL (0.15-1.2) 09/20/22 20:00 AST 61 U/L (0-32) H 09/20/22 20:00 ALT 96 U/L (0-33) H 09/20/22 20:00 Alkaline Phosphatase 125 U/L (35-105) H 09/20/22 20:00 Total Protein 7.5 g/dL (6.6-8.7) 09/20/22 20:00 Albumin 4.6 g/dL (3.5-5.2) 09/20/22 20:00 Globulin 2.9 g/dL (1.3-4.6) 09/20/22 20:00 Lipase 20 U/L (13-60) 09/20/22 20:00 Urine Color Yellow (Yellow) 09/20/22 19:40 Urine Appearance Clear (CLEAR) 09/20/22 19:40 Urine pH 7 (5-7) 09/20/22 19:40 Ur Specific [place] 1.015 (1.005-1.030) 09/20/22 19:40 Urine Protein Neg (Negative) 09/20/22 19:40 Urine Glucose (UA) Norm (Normal) 09/20/22 19:40 Urine Ketones Negative (Negative) 09/20/22 19:40 Urine Blood Neg (Negative) 09/20/22 19:40 Urine Nitrate Negative (Negative) 09/20/22 19:40 Urine Bilirubin Neg (Negative) 09/20/22 19:40 Urine Urobilinogen 4 mg/dL (Negative) H 09/20/22 19:40 Ur Leukocyte Esterase Trace (Negative) H 09/20/22 19:40 Urine RBC 0-4 /hpf (0-2) H 09/20/22 19:40 Urine WBC 5-10 /hpf (0-5) H 09/20/22 19:40 Ur Squamous Epith Cells 25-40 /hpf (0-5) H 09/20/22 19:40 Amorphous Sediment Not Reportable 09/20/22 19:40 Urine Bacteria 2+ /hpf (NONE) H 09/20/22 19:40 Influenza Type A Ag negative (Negative) 09/20/22 19:40 Influenza Type B Ag negative (Negative) 09/20/22 19:40 SARS-CoV-2 Ag (Rapid) negative (Negative) 09/20/22 19:40 Discharge Plan Discharge Patient Disposition: Home Clinical Impression: Acute viral syndrome, Transaminitis, Dehydration Condition: Stable Prescriptions: New ondansetron 4 mg tablet,disintegrating 4 mg PO Q8H PRN (Reason: nausea and vomiting) Qty: 15 0RF No Action losartan-hydrochlorothiazide 50-12.5 mg tablet 1 tab PO DAILY levothyroxine 175 mcg tablet 175 mcg PO DAILY Mounjaro 2.5 mg/0.5 mL pen injector 2.5 mg SUBCUT DIRECTED Rx Instructions: weekly pantoprazole 40 mg tablet,delayed release (DR/EC) 40 mg PO DAILY Qty: 90 8RF Discharge Orders: Discharge ED (Routine); Ordered 09/20/22 Ordered By: Oleksandr Osborn Referrals: Lori Johnson, EDDIE [Primary Care Provider] - Discharge Diet: Advance as tolerated and Clear Liquid Discharge Activity: Increase activity as tolerated Patient Instructions: Dehydration (ED), Viral Syndrome (ED) Activity Restrictions/Additional Instructions: Thank you for visiting the emergency department. You were seen and evaluated for generalized illness. The most likely cause of your symptoms is viral in nature. The treatment is supportive. You may use [id number] medications such as acetaminophen and ibuprofen for pain however please do not exceed the daily recommended dosage as listed on the packaging and please keep in mind that many namebrand medications contain the same active ingredients. Please avoid these medications if previously instructed to do so by another physician due to other underlying medical condition. Please make sure that you are staying hydrated. Please follow-up with your primary care provider including to follow-up for elevated liver enzymes as discussed. Return to the emergency department for worsening symptoms or anything else that you are concerned about and feel needs emergency department evaluation. Coding Level of Care Code ED Apartment Manager for Varun Hood
--- NOTE | 2022-09-20 19:31 | XRR_ITS ---
PROCEDURE INFORMATION: Exam: XR Chest Exam date and time: 09/20/2022 8:17 PM Age: 52 years old Clinical indication: Fever and other: Cough; Additional info: Cough, fevers TECHNIQUE: Imaging protocol: Radiologic exam of the chest. Views: 1 view. COMPARISON: CR XR chest 1V portable [id number] 10/31/2021 9:18 PM FINDINGS: Lungs: The lung bases are suboptimally assessed due to technique however the upper lungs are clear of focal consolidation. Pleural spaces: Unremarkable. No pleural effusion. No pneumothorax. Heart/Mediastinum: Cardiac silhouette appears normal in size. No obvious vascular congestion. Bones/joints: No acute osseous findings. Other findings: Single view was submitted. XR/XR chest 1V portable [id number] IMPRESSION: No obvious acute consolidation. Suboptimal lung base assessment. Followup including lateral view may be obtained if clinically indicated.
[2022-09-20] MEDS: sodium chloride 0.9% 1,000 ML 999 ML IV (20:08)
[2022-09-20] MEDS: ketorolac 30 mg/mL INJ 15 MG IVP (20:16)
[2022-09-20] MEDS: ondansetron 2 mg/ML SDV 2 mL 4 MG IVP (20:17)
[2022-09-20 20:20] VITALS: BP 159/102; PULSE 110; RESP 18; O2SAT 100
[2022-09-20 20:26] LABS: Add Urine Microscopic? YES; Bilirubin Urine Neg (Negative); Blood Urine Neg (Negative); Glucose Urine UA Norm (Normal); Ketones Urine Negative (Negative); Leukocyte Esterase Urine Trace (Negative); Nitrate Urine Negative (Negative); Protein Urine Neg (Negative); RBC Urine 0-4 /hpf (0-2); Specific Gravity, Urine 1.015 (1.005-1.030); Urine Appearance Clear (CLEAR); Urine Color Yellow (Yellow); Urobilinogen Urine 4 mg/dL (Negative); pH Urine 7 (5-7)
[2022-09-20 20:27] LABS: Add Urine Culture? No; Bacteria Urine 2+ /hpf; Squamous Epithelial Cell Urine 25-40 /hpf (0-5)
[2022-09-20 20:29] LABS: Influenza A by IFA negative (Negative); Influenza B by IFA negative (Negative)
[2022-09-20 20:30] VITALS: BP 146/92; PULSE 95; RESP 18; O2SAT 96
[2022-09-20 20:30] LABS: SARS Covid-2 Antigen negative (Negative)
[2022-09-20 20:38] LABS: Basophils % 0.4 %; Eosinophils # 0.1 10^3/uL (0.0-0.8); Eosinophils % 0.5 %; Hematocrit 47.7 % (37.0-47.0); Lymphocytes # 1.3 10^3/uL (0.8-4.8); Mean Corpuscular HGB Conc 33.5 g/dL (30.0-36.0); Mean Corpuscular Hemoglobin 28.3 pg (28.0-34.0); Mean Corpuscular Volume 84.4 fl (81-99); Mean Platelet Volume 11.2 fL (7.4-10.4); Monocytes # 0.9 10^3/uL (0.2-0.9); Monocytes % 8.3 %; Neutrophils # 8.54 10^3/uL (1.8-7.7); Neutrophils % 78.6 %; Nucleated Red Blood Cells % 0 %; Platelet Count 282 10^3/cmm (130-400); Red Blood Count 5.65 10^6/uL (4.1-5.3); Red Cell Distribution Width 12.5 % (12.1-15.1); White Blood Count 10.9 10^3/uL (4.0-10.0)
[2022-09-20 20:45] VITALS: BP 132/89; PULSE 98; RESP 18; O2SAT 96
[2022-09-20 21:04] LABS: Alanine Aminotransferase 96 U/L (0-33); Albumin Level 4.6 g/dL (3.5-5.2); Alkaline Phosphatase 125 U/L (35-105); Anion Gap 14.5 (5-19); Aspartate Amino Transferase 61 U/L (0-32); Blood Urea Nitrogen 13 mg/dL (6-20); Calcium 10.1 mg/dL (8.5-10.5); Carbon Dioxide 24 mmol/L (22-29); Chloride 100 mmol/L (98-107); Globulin 2.9 g/dL (1.3-4.6); Glomerular Filtration Rate 87.9 mL/min (90-130); Glucose 100 mg/dL (65-115); Lipase 20 U/L (13-60); Osmolality Calculated 280 mOsm/kg (285-295); Potassium 3.5 mmol/L (3.5-5.1); Sodium 135 mmol/L (136-145); Total Bilirubin 0.8 mg/dL (0.15-1.2); Total Protein 7.5 g/dL (6.6-8.7)
== END 2022-09-20 21:29 | disposition home or self-care (01) ==
PROVIDERS: Nurse Practitioner Family; Emergency Provider Emergency Medicine; PCP Nurse Practitioner Family
DX: B34.9 Viral infection, unspecified (principal); R74.01 Elevation of levels of liver transaminase levels; E86.0 Dehydration; Z20.822 Contact with and (suspected) exposure to COVID-19; I10 Essential (primary) hypertension
CPT/HCPCS: 71045; 80053; 81001; 83690; 85025; 87426; 87804; 96361; 96374; 96375; 99284; J1885; J2405; J7030

== ENCOUNTER 2022-10-23 06:13 | Outpatient (CLI) | payer OTHER, SELFPAY ==
--- NOTE | 2022-10-23 | US_ITS ---
WS: [id number] RIGHT UPPER QUADRANT ULTRASOUND HISTORY: ELEVATED LFT'S COMPARISON: None available. Liver: 17.3 cm in length. Liver is very mildly enlarged. No mass or bile duct dilatation. Portal Vein: Normal hepatopetal flow with monophasic waveform. Gallbladder: Normally distended gallbladder with a small amount of debris and sludge. No shadowing ca lculi. No wall thickening. CBD: 0.6 cm Pancreas: Normal size and echogenicity. Right kidney: 11.9 cm in length. Normal size and echogenicity. No hydronephrosis or mass. Aorta and IVC: Unremarkable abdominal aorta and IVC. No ascites. US/US gall bladder [id number] IMPRESSION: 1. Small amount of gallbladder sludge and debris. No cholelithiasis identified . 2. No bile duct dilatation. 3. No gallbladder wall thickening or edema. 4. Very mildly enlarged liver.
== END 2022-10-23 06:14 | disposition home or self-care (01) ==
PROVIDERS: PCP Nurse Practitioner Family; Visit Provider Nurse Practitioner Family
DX: R74.8 Abnormal levels of other serum enzymes (principal); R11.0 Nausea
CPT/HCPCS: 76705

== ENCOUNTER 2023-02-15 07:13 | Emergency (ER) | payer OTHER, SELFPAY ==
[2023-02-15 07:43] VITALS: BP 124/94; PULSE 73; TEMP 36.6; O2SAT 100; BMI 35.6
--- NOTE | 2023-02-15 07:51 | XRR_ITS ---
PROCEDURE INFORMATION: Exam: XR Left Shoulder Exam date and time: 02/15/2023 8:11 AM Age: 52 years old Clinical indication: Pain; Shoulder; Left; Additional info: Left shoulder pain after fall TECHNIQUE: Imaging protocol: Radiologic exam of the left shoulder. Views: 2 or more views. COMPARISON: CR XR chest 1V portable [id number] 09/20/2022 8:17 PM FINDINGS: Bones/joints: Alignment is normal. No acute fracture. No glenohumeral osteophytes. Mild AC joint arthritis. Soft tissues: Visible soft tissues are unremarkable. XR/XR shoulder LT min 2V* [id number] IMPRESSION: No acute findings.
--- NOTE | 2023-02-15 07:51 | XRR_ITS ---
PROCEDURE INFORMATION: Exam: XR Left Humerus Exam date and time: 02/15/2023 8:11 AM Age: 52 years old Clinical indication: Pain; Shoulder; Left; Additional info: Left arm pain after fall TECHNIQUE: Imaging protocol: Radiologic exam of the left humerus. Views: 2 or more views. COMPARISON: CR XR chest 1V portable [id number] 09/20/2022 8:17 PM FINDINGS: Bones/joints: Alignment of the shoulder and elbow are normal. No acute fracture. Soft tissues: Visible soft tissues are unremarkable. XR/[place] [id number] IMPRESSION: No acute findings.
--- NOTE | 2023-02-15 07:51 | W.ED.EXTPRO ---
HPI - Extremity Problem General: Chief complaint: Extremity Problem,Nontraumatic Stated complaint: left arm heaviness Time Seen by Provider: 02/15/23 07:29 Source: patient Mode of arrival: ambulatory History of Present Illness: 52-year-old female presents to the emergency room with complaint of left shoulder pain for the last 6 or 7 weeks she does not recall any particular trauma she did slide some furniture around in her home and seem to begin after that she is not able to raise her left arm to shoulder level or above shoulder level has significant discomfort no history of trauma or direct injury or previous fracture to that shoulder. No chest pain. MD Complaint: joint pain Onset (ago): week(s) (6-7) Pain Consistency: constant Location: left (Shoulder) Quality: sharp and constant Relieving factors: nothing Exacerbating factors: range of motion Associated symptoms: Deny arthralgias, chest pain, fever(s), myalgias, rash or short of breath Review of Systems Const: Denies: fever(s) or chills Card: Denies: chest pain Resp: Denies: dyspnea, productive cough or non-productive cough GI: Denies: abdominal pain, nausea or vomiting Musc: Reports: joint pain Skin/Breast: Denies: rash PFSH ED PFSH: Medical History HTN (hypertension) Surgical History H/O: hysterectomy Social History Smoking and tobacco status: never smoked Physical Exam Const: COMMON NORMALS: no acute distress GENERAL APPEARANCE: cooperative and comfortable ORIENTATION/CONSCIOUSNESS: Yes awake, Yes oriented to person, Yes oriented to place and Yes oriented to time HENMT: COMMON NORMALS: normocephalic, atraumatic and hearing grossly normal bilaterally HEAD & SCALP: normocephalic and atraumatic Extremity: COMMON NORMALS: normal to inspection, capillary refill normal, no clubbing, cyanosis or edema, no calf tenderness and no pedal edema OTHER: Limited range of motion in the left shoulder with passive range of motion can only AB duct to a little past 45 degrees 5 to 10 degrees of external rotation. Neurovascularly intact. No crepitus no deformity Neuro: SENSORIUM/ORIENTATION: Yes oriented to person, Yes oriented to place and Yes oriented to time Skin: COMMON NORMALS: no rashes or lesions noted GENERAL SKIN EXAM: no rashes or lesions noted Course Vital Signs: Vital signs: Vital Signs Temperature 97.9 F 02/15/23 07:43 Pulse Rate 73 02/15/23 08:24 Blood Pressure 122/87 02/15/23 08:24 Pulse Oximetry 100 02/15/23 08:24 Oxygen Delivery Me thod Room Air 02/15/23 07:43 MDM - Extremity (Nontraumatic) Medical Decision Making X-ray of the humerus and shoulder are unremarkable. Based on exam patient has a adhesive capsulitis discussed with her. Use anti-inflammatories avoid any heavy lifting the left shoulder we will get her referred to orthopedics for definitive care. Medical Records I reviewed the patient's medical records. Lab Data I reviewed the patient's lab results. Radiology Impressions Humerus X-Ray 02/15/23 07:51 IMPRESSION: No acute findings. Shoulder X-Ray 02/15/23 07:51 IMPRESSION: No acute findings. Discharge Plan Discharge Patient Disposition: Home Clinical Impression: Adhesive capsulitis of left shoulder Condition: Stable Prescriptions: New diclofenac sodium 75 mg tablet,delayed release (DR/EC) 75 mg PO Q12H PRN (Reason: pain) Qty: 20 0RF No Action losartan-hydrochlorothiazide 50-12.5 mg tablet 1 tab PO DAILY levothyroxine 175 mcg tablet 175 mcg PO DAILY Mounjaro 2.5 mg/0.5 mL pen injector 2.5 mg SUBCUT DIRECTED Rx Instructions: weekly ondansetron 4 mg tablet,disintegrating 4 mg PO Q8H PRN (Reason: nausea and vomiting) Qty: 15 0RF pantoprazole 40 mg tablet,delayed release (DR/EC) 40 mg PO DAILY Qty: 90 8RF Discharge Orders: Discharge ED (Routine); Ordered 02/15/23 Ordered By: Vladimir Mistry Referrals: Lori Johnson, WHOLESALE MANAGER [Primary Care Provider] - Discharge Diet: Usual diet Discharge Activity: Increase activity as tolerated Patient Instructions: Opioid Safety, Pain Management Activity Restrictions/Additional Instructions: You are seen today for left shoulder pain on exam you have frozen shoulder (adhesive capsulitis). Use diclofenac as needed avoid exertion exertional use of the left arm. Case management make arrangements for you to see orthopedics. Coding Level of Care Code ED Wine Bottle Inspector for Varun Hood
[2023-02-15 08:24] VITALS: BP 122/87; PULSE 73; O2SAT 100
--- NOTE | 2023-02-15 08:35 | DCPLANNER ---
Addendum entered by Moni Weiss 02/27/23 09:36: Patient had a follow up appointment scheduled with ortho - patient did attend appointment. Addendum entered by Moni Weiss 02/23/23 10:03: Patient has a follow up appointment scheduled for , February 26, 2023 at 8:00 with Juan Martin at ortho. Original Note: supplier quality engineering manager had message to schedule a follow up appointment for patient with ortho. supplier quality engineering manager sent patients information to the front office staff ortho. Patients information will be printed and reviewed. Clinic will call patient with appointment information.
== END 2023-02-15 08:25 | disposition home or self-care (01) ==
PROVIDERS: Emergency Provider Family Medicine; PCP Nurse Practitioner Family
DX: M75.02 Adhesive capsulitis of left shoulder (principal); I10 Essential (primary) hypertension
CPT/HCPCS: 73030; 73060; 99283

== ENCOUNTER → 2023-02-19 17:08 | Outpatient (BNVA) | payer OTHER, SELFPAY | PROVIDERS: PCP Nurse Practitioner Family; Visit Provider Emergency Medicine | DX: M25.531 Pain in right wrist (principal); M25.562 Pain in left knee | CPT/HCPCS: 73110; 73562 ==

== ENCOUNTER 2023-03-09 01:57 | Emergency (ER) | payer OTHER, SELFPAY ==
[2023-03-09 01:58] VITALS: BMI 34.7
--- NOTE | 2023-03-09 01:58 | XRR_ITS ---
PROCEDURE INFORMATION: Exam: XR Chest Exam date and time: 03/09/2023 2:20 AM Age: 52 years old Clinical indication: Pain; Chest pressure; Additional info: Cp TECHNIQUE: Imaging protocol: Radiologic exam of the chest. Views: 1 view. COMPARISON: CR XR chest 1V portable [id number] 09/20/2022 8:17 PM FINDINGS: Lungs: Unremarkable. No consolidation. Pleural spaces: Unremarkable. No pleural effusion. No pneumothorax. Heart/Mediastinum: Unremarkable. No cardiomegaly. Bones/joints: Unremarkable. XR/XR chest 1V portable [id number] IMPRESSION: No acute findings.
[2023-03-09 02:02] VITALS: BP 120/90; PULSE 76; RESP 17; TEMP 37.1; O2SAT 100
--- NOTE | 2023-03-09 02:05 | ECG_ITS ---
[facility] Test Date: 2023-03-09 Pat Name: Ruby Cote Department: Room: Gender: Female Machine Erector: : 1970 Requested By: Yue Carlson Order Number: [id number] Josiane MD: Lindsey Powell M.D. Measurements Intervals [place] Rate: 74 P: 50 WI: 136 QRS: 63 QRSD: 91 T: 40 QT: 382 QTc: 425 Interpretive Statements SINUS RHYTHM Compared to ECG 10/31/2021 21:53:04 No significant changes Electronically Signed On 03-09-2023 10:58:08 CDT by Lindsey Powell M.D. [id number]
--- NOTE | 2023-03-09 02:05 | ED_ITS ---
HPI - Chest Pain General: Chief Complaint: Chest Pain Stated Complaint: Chest Pain Time Seen by Provider: 03/09/23 01:57 Source: patient and EMS Mode of arrival: EMS Limitations: no limitations History of Present Illness: 52-year-old female states that she started having some chest pain along with epigastric pain that started 2 hours ago. States has been a burning pain she had issues with reflux all with abdominal pain in the past she had an abdominal ultrasound in September was normal. States she started feeling anxious and having some dyspnea she states she is feeling improved currently her pain is now down to 2 out of 10 denies any fever or cough. Associated symptoms: Reports abdominal pain; Deny dyspnea, fever(s), nausea or vomiting Review of Systems Const: Denies: fever(s), chills, body aches or change in appetite ENMT: Denies: throat pain or dental pain Card: Reports: chest pain Resp: Denies: dyspnea GI: Reports: abdominal pain; Denies: nausea, vomiting or diarrhea : Denies: dysuria Musc: Denies: neck pain or back pain Skin/Breast: Denies: rash Neuro: Denies: headache(s) PFSH ED PFSH: Medical History HTN (hypertension) Surgical History H/O: hysterectomy Social History Smoking and tobacco status: never smoked Physical Exam Const: COMMON NORMALS: no acute distress, patient oriented x3 and healthy appearing HENMT: COMMON NORMALS: normocephalic and atraumatic HEAD & SCALP: normocephalic and atraumatic Neck/C-Spine: COMMON NORMALS: full ROM and supple Chest: COMMONS NORMALS: normal inspection of the chest and normal palpation of entire chest wall Resp: COMMON NORMALS: normal respiratory effort, No retractions, No use of accessory muscles and clear to auscultation bilaterally AUSCULTATION: clear to auscultation bilaterally Cardio: COMMON NORMALS: regular rate, regular rhythm and No murmurs present (Cardio) RATE: regular rate RHYTHM: regular rhythm GI: COMMON NORMALS: Normal to inspection, nondistended, normoactive bowel sounds present, Soft to palpation, non-tender and no masses PALPATION: Yes Soft to palpation Extremity: COMMON NORMALS: normal to inspection and full ROM Neuro: COMMON NORMALS: patient oriented x3, moves all extremities and no focal motor deficits Psych: COMMON NORMALS: mental status grossly normal, Normal thought process present and cooperative THOUGHT PROCESS: Normal thought process present Skin: COMMON NORMALS: no rashes or lesions noted and no wounds GENERAL SKIN EXAM: no rashes or lesions noted Course Vital Signs: Vital signs: Vital Signs Temperature 98.8 F 03/09/23 02:02 Pulse Rate 75 03/09/23 04:01 Respiratory Rate 14 03/09/23 04:01 Blood Pressure 130/83 03/09/23 04:01 Pulse Oximetry 98 03/09/23 04:01 Oxygen Delivery Me thod Room Air 03/09/23 04:01 MDM - Chest Pain Medical Decision Making Patient presents for chest and abdominal pain is atypical in nature troponins here are normal no signs of acute coronary syndrome no signs of dissection or PE CT of her abdomen is normal no signs of cholecystitis she feels improved here she is stable for discharge she is to follow-up with her PCP and return if worsening. Medical Records I reviewed the patient's medical records. Lab Data I reviewed the patient's lab results. 03/09/23 02:16 03/09/23 02:16 Radiology Impressions Chest X-Ray 03/09/23 01:58 IMPRESSION: No acute findings. Abdomen/Pelvis CT 03/09/23 02:57 IMPRESSION: Negative for acute abdominopelvic pathology. Laboratory Results WBC 13.5 10^3/uL (4.0-10.0) H 03/09/23 02:16 RBC 4.73 10^6/uL (4.1-5.3) 03/09/23 02:16 Hgb 13.2 g/dL (11.5-15.3) 03/09/23 02:16 Hct 39.7 % (37.0-47.0) 03/09/23 02:16 MCV 83.9 fl (81-99) 03/09/23 02:16 MCH 27.9 pg (28.0-34.0) L 03/09/23 02:16 MCHC 33.2 g/dL (30.0-36.0) 03/09/23 02:16 RDW 13.3 % (12.1-15.1) 03/09/23 02:16 Plt Count 256 10^3/cmm (130-400) 03/09/23 02:16 MPV 10.9 fL (7.4-10.4) H 03/09/23 02:16 Neut % (Auto) 78.6 % 03/09/23 02:16 Lymph % (Auto) 16.0 % 03/09/23 02:16 Gonzales % (Auto) 4.4 % 03/09/23 02:16 Eos % (Auto) 0.3 % 03/09/23 02:16 Baso % (Auto) 0.4 % 03/09/23 02:16 Neut # (Auto) 10.60 10^3/uL (1.8-7.7) H 03/09/23 02:16 Lymph # (Auto) 2.2 10^3/uL (0.8-4.8) 03/09/23 02:16 Gonzales # (Auto) 0.6 10^3/uL (0.2-0.9) 03/09/23 02:16 Eos # (Auto) 0.0 10^3/uL (0.0-0.8) 03/09/23 02:16 Baso # (Auto) 0.1 10^3/uL (0.0-0.1) 03/09/23 02:16 Nucleated RBC % (auto) 0 % 03/09/23 02:16 Nucleated RBCs # 0.0 /100WBC 03/09/23 02:16 Sodium 136 mmol/L (136-145) 03/09/23 02:16 Potassium 3.5 mmol/L (3.5-5.1) 03/09/23 02:16 Chloride 105 mmol/L (98-107) 03/09/23 02:16 Carbon Dioxide 19 mmol/L (22-29) L 03/09/23 02:16 Anion Gap 15.5 (5-19) 03/09/23 02:16 BUN 17 mg/dL (6-20) 03/09/23 02:16 Creatinine 0.6 mg/dL (0.5-0.9) 03/09/23 02:16 GFR Calculation 105.0 mL/min (90-130) 03/09/23 02:16 Glucose 118 mg/dL (65-115) H 03/09/23 02:16 Calculated Osmolality 285 mOsm/kg (285-295) 03/09/23 02:16 Calcium 8.9 mg/dL (8.5-10.5) 03/09/23 02:16 Total Bilirubin 0.5 mg/dL (0.15-1.2) 03/09/23 02:16 AST 43 U/L (0-32) H 03/09/23 02:16 ALT 25 U/L (0-33) 03/09/23 02:16 Alkaline Phosphatase 99 U/L (35-105) 03/09/23 02:16 Troponin T Baseline 6 ng/L (0-10) 03/09/23 02:16 Troponin T 120 Minute 6.00 ng/L (0-10) 03/09/23 04:18 Total Protein 5.9 g/dL (6.6-8.7) L 03/09/23 02:16 Albumin 3.7 g/dL (3.5-5.2) 03/09/23 02:16 Globulin 2.2 g/dL (1.3-4.6) 03/09/23 02:16 Lipase 28 U/L (13-60) 03/09/23 02:16 EKG Data EKG 1: I personally reviewed and interpreted this EKG as follows: EKG interpretation date: 03/09/23 EKG interpretation time: 02:05 Interpretation: nsr hr 74 no sr or t wave abnormalities qrs 91 qtc 409 Discharge Plan Discharge Patient Disposition: Home Clinical Impression: Chest pain, Abdominal pain Condition: Stable Prescriptions: New hydrocodone-acetaminophen 5-325 mg tablet 1 tab PO Q6H PRN (Reason: pain) Qty: 14 0RF No Action miscellaneous medical supply Misc 1 ea miscellaneous DAILY Qty: 1 0RF Rx Instructions: sling losartan-hydrochlorothiazide 50-12.5 mg tablet 1 tab PO DAILY levothyroxine 175 mcg tablet 175 mcg PO DAILY Mounjaro 2.5 mg/0.5 mL pen injector 2.5 mg SUBCUT DIRECTED Rx Instructions: weekly pantoprazole 40 mg tablet,delayed release (DR/EC) 40 mg PO DAILY Qty: 90 8RF diclofenac sodium 75 mg tablet,delayed release (DR/EC) 75 mg PO Q12H PRN (Reason: pain) Qty: 20 0RF Discharge Orders: Discharge ED (Routine); Ordered 03/09/23 Ordered By: Yue Carlson Referrals: Lori Johnson FNP [Primary Care Provider] - 1-3 days Discharge Diet: Advance as tolerated Discharge Activity: Resume usual activity Patient Instructions: Chest Pain (ED), Abdominal Pain (ED), Opioid Safety Coding Level of Care Code ED Machine Room Operator for Varun Hood
[2023-03-09] MEDS: lidocaine 2% viscous 15 ML, aluminum-mag hydrox-simethicon 30 ML, sucralfate oral liq 1 GM PO (02:21)
[2023-03-09] MEDS: ondansetron 2 mg/ML SDV 2 mL 4 MG IVP (02:24)
[2023-03-09] MEDS: morphine 4 mg/mL SDV 1 mL IVP (02:28)
[2023-03-09 02:29] LABS: Basophils # 0.1 10^3/uL (0.0-0.1); Basophils % 0.4 %; Eosinophils % 0.3 %; Hematocrit 39.7 % (37.0-47.0); Hemoglobin 13.2 g/dL (11.5-15.3); Lymphocytes # 2.2 10^3/uL (0.8-4.8); Mean Corpuscular HGB Conc 33.2 g/dL (30.0-36.0); Mean Corpuscular Hemoglobin 27.9 pg (28.0-34.0); Mean Corpuscular Volume 83.9 fl (81-99); Mean Platelet Volume 10.9 fL (7.4-10.4); Monocytes # 0.6 10^3/uL (0.2-0.9); Monocytes % 4.4 %; Neutrophils % 78.6 %; Nucleated Red Blood Cells % 0 %; Platelet Count 256 10^3/cmm (130-400); Red Blood Count 4.73 10^6/uL (4.1-5.3); Red Cell Distribution Width 13.3 % (12.1-15.1); White Blood Count 13.5 10^3/uL (4.0-10.0)
[2023-03-09 02:46] LABS: Troponin(5th) Baseline 6 ng/L (0-10)
[2023-03-09 02:48] LABS: Alanine Aminotransferase 25 U/L (0-33); Albumin Level 3.7 g/dL (3.5-5.2); Alkaline Phosphatase 99 U/L (35-105); Anion Gap 15.5 (5-19); Aspartate Amino Transferase 43 U/L (0-32); Blood Urea Nitrogen 17 mg/dL (6-20); Calcium 8.9 mg/dL (8.5-10.5); Carbon Dioxide 19 mmol/L (22-29); Chloride 105 mmol/L (98-107); Globulin 2.2 g/dL (1.3-4.6); Glucose 118 mg/dL (65-115); Lipase 28 U/L (13-60); Osmolality Calculated 285 mOsm/kg (285-295); Potassium 3.5 mmol/L (3.5-5.1); Sodium 136 mmol/L (136-145); Total Bilirubin 0.5 mg/dL (0.15-1.2); Total Protein 5.9 g/dL (6.6-8.7)
--- NOTE | 2023-03-09 02:57 | CTR_ITS ---
PROCEDURE INFORMATION: Exam: CT Abdomen And Pelvis With Contrast Exam date and time: 03/09/2023 3:07 AM Age: 52 years old Clinical indication: Abdominal pain; Generalized; Prior surgery; Surgery date: 6+ months; Surgery type: Hysterectomy; Additional info: Abd pain TECHNIQUE: Imaging protocol: Computed tomography of the abdomen and pelvis with contrast. Radiation optimization: All CT scans at this facility use at least one of these dose optimization techniques: automated exposure control; mA and/or kV adjustment per patient size (includes targeted exams where dose is matched to clinical indication); or iterative reconstruction. Contrast material: OMNI 350; Contrast volume: 100 ml; Contrast route: INTRAVENOUS (IV); REPORTING DATA: Count of CT and Cardiac NM exams in prior 12 months: This patient has received [address] and 0 known cardiac nuclear medicine studies in the 12 months prior to the current study. COMPARISON: CT abdomen pelvis w con* [id number] 10/31/2021 9:09 PM RADIATION DOSE METRICS: Total DLP (mGy-cm): 1143.22 FINDINGS: Liver: Normal. No mass. Gallbladder and bile ducts: Normal. No calcified stones. No ductal dilation. Pancreas: Normal. No ductal dilation. Spleen: Normal. No splenomegaly. Adrenal glands: Normal. No mass. Kidneys and ureters: Normal. No hydronephrosis. Stomach and bowel: Diverticulosis coli. Negative for inflammatory bowel wall thickening. Negative for bowel mass. Negative for bowel obstruction or perforation. Appendix: No evidence of appendicitis. Intraperitoneal space: Unremarkable. No free air. No significant fluid collection. Vasculature: Unremarkable. No abdominal aortic aneurysm. Lymph nodes: Unremarkable. No enlarged lymph nodes. Urinary bladder: Unremarkable as visualized. Reproductive: Hysterectomy. Bones/joints: Unremarkable. No acute fracture. Soft tissues: Unremarkable. CT/CT abdomen pelvis w con* [id number] IMPRESSION: Negative for acute abdominopelvic pathology.
[2023-03-09] MEDS: iohexol 350 mg/mL 500 mL Btl (per mL) IV (03:11)
[2023-03-09 04:01] VITALS: BP 130/83; PULSE 75; RESP 14; O2SAT 98
[2023-03-09 04:53] VITALS: BP 127/74; PULSE 77; RESP 16; O2SAT 95
[2023-03-09 04:59] LABS: Troponin 5 2HR Delta 0 ABS# (0-10)
== END 2023-03-09 04:54 | disposition home or self-care (01) ==
PROVIDERS: Emergency Provider Emergency Medicine; PCP Nurse Practitioner Family
DX: R07.9 Chest pain, unspecified (principal); R10.13 Epigastric pain; I10 Essential (primary) hypertension
CPT/HCPCS: 71045; 74177; 80053; 83690; 84484; 85025; 93005; 96374; 96375; 99285; J2270; J2405; Q9967